=== PATIENT | female | born 1980 | race Two or more races ===

== ENCOUNTER 2021-05-26 17:54 | Emergency (ER) | payer MEDICAID | END 2021-05-26 19:12 | disposition left against medical advice (07) | LOC: ER 17:54 | DX: R10.9 Unspecified abdominal pain (principal); Z53.21 Procedure and treatment not carried out due to patient leaving prior to being seen by health care provider ==

== ENCOUNTER 2021-12-30 16:29 | Emergency (ER) | payer OTHER ==
[~2021-12-30] VITALS: Ht 172.7 cm; Wt 101.5 kg
[2021-12-30 16:43] VITALS: BP 147/88
[2021-12-30] MEDS ORDERED: FLUORESCEIN OPHTH TEST STRIP. OS ONE (17:30)
[2021-12-30] MEDS ORDERED: PROPARACAINE 0.5% OPHTH SOLUTION 15ML BOTTLE. OS ONE (17:30)
--- NOTE | 2021-12-30 18:32 | PHYS DOC ---
Past Medical History Additional Past Medical Histor: ptsd Past Surgical History: Appendectomy, Cholecystectomy General Adult EDM: Chief Complaint: FOREIGN BODY/EYES HPI: HPI: Patient is a 41 year old female who presents with left eye pain and irritation as well as a bump on the palmar aspect of her left hand. Patient states that she recently broke her cell phone screen. She often lays in bed with the phone over her face, and she believes a piece of glass may have scratched her eye. Additionally, she has a tender, red, hard "bump" on the palm of her left hand. She reports associated "tingling." Patient states that she noticed it this morning. Patient has no other complaints at this time. Review of Systems: Review of Systems: ROS negative or noncontributory except as mentioned in HPI. Heart Score: C/O Chest Pain: No Current Medications: Current Medications Medications (Trade) Dose Ordered Sig/Tammi Start Time Stop Time Status Last Admin Dose Admin Fluorescein Sodium (Ful-Kayla) 1 strip 1X ONCE 12/30/21 17:30 12/30/21 17:31 DC 12/30/21 17:43 1 STRIP Proparacaine HCl (Alcaine) 1 drop 1X ONCE 12/30/21 17:30 12/30/21 17:31 DC 12/30/21 17:43 1 DROP Allergies: Allergies: Allergies Coded Allergies Type Severity Reaction Last Updated Verified Penicillins Allergy Unknown 12/30/21 Yes Physical Exam: PE: Constitutional: Well developed, well nourished, no acute distress, non-toxic appearance. HENT: Normocephalic, atraumatic, bilateral external ears normal, nose normal. Eyes: PERRL, EOMI, left medial conjunctival injection without subconjunctival hemorrhage or hyphema, watery discharge on the left side. Fluorescein stain Grande lamp exam reveals scleral abrasion just medial to the edge of the cornea, no foreign bodies removed or visible. Neck: Normal range of motion, no stridor. Skin: Warm, dry, no erythema, no rash. Extremities: 2-3 mm firm and exquisitely tender mass to the palmar aspect of the left hand at the superior border of the thenar eminence without obvious foreign body or entry wound. Extremities otherwise no tenderness, no cyanosis, no clubbing, ROM intact, no edema. Neurologic: Alert and oriented x4, no focal deficits noted. Current Patient Data: Vital Signs: Vital Signs Date Time Temp Pulse Resp B/P (MAP) Pulse Ox O2 Delivery O2 Flow Rate FiO2 12/30/21 16:43 98.1 84 18 147/88 (107) 96 Room Air 98.1 Radiology/Procedures: Radiology/Procedures: PROCEDURE: HAND LEFT 3V XR HAND_LEFT 3 VIEWS History: Reason: palmar painful bump, r/o radiopaque fb / Spl. Instructions: / History: Technique: 3 views left hand Comparison: None. Findings: No dislocation. No acute fracture. No radiopaque foreign body. Impression: 1. No acute osseous abnormality. Electronically signed by: Navin Grant DO (12/30/2021 7:59 PM) [facility] Course & Med Decision Making: Course & Med Decision Making Pertinent Labs and Imaging studies reviewed. (See chart for details) Patient is a 41-year-old female who presents with left eye pain and a small mass on the palm of her left hand. Patient believes that a shard of glass from her correct cell phone screen may have fallen into her eye. Grande lamp exam reveals scleral abrasion without evidence of globe rupture. Patient will be treated with antibiotic eyedrops as well as diclofenac eyedrops. Patient advised to follow with ophthalmology in the next 48 hours. Imaging studies performed on the hand are unremarkable. Patient was advised to use warm compress and follow-up with Ortho. All of the patient's questions were answered. She understands and is agreeable to discharge plan. Case was discussed with Dr. Blackman, attending in the emergency department, prior to patient discharge. Lisa Disclaimer: Lisa Disclaimer: This electronic medical record was generated, in whole or in part, using a voice recognition dictation system. Departure Departure Impression: Primary Impression: Abrasion of sclera of left eye Qualified Codes: S05.8X2A - Other injuries of left eye and orbit, initial encounter Additional Impression: Subcutaneous mass of left hand Disposition: HOME / SELF CARE / HOMELESS Condition: IMPROVED Referrals: UNKNOWN PCP NAME (PCP) LIZBET LYLES MD, EVERETT J Jr. DO Patient Instructions: Eye - Corneal Abrasion, [id number] Additional Instructions: EMERGENCY DEPARTMENT GENERAL DISCHARGE INSTRUCTIONS Thank you for coming to [facility] Emergency Department (ED) today and trusting us with you care. We trust that you had a positive e xperience in our Emergency Department. If you wish to speak to the department management, you may call the director at . YOUR FOLLOW UP INSTRUCTIONS ARE FOLLOWS: 1. Follow up with your primary care doctor. If you do not have a primary d octor, please ask for a resource list of physicians or clinics that may be able to assist you with follow up care. 2. The emergency provider has interpreted your imaging studies, if any were ordered. The radiology legal document specialist also reviewed them. If there is a change in the findings, you will be notified in 48 hours when at all possible. 3. If a lab test or culture has been done, your results will be reviewed and you will be notified if you need a change in treatment. 4. Follow instructions verbalized to you and refer to the printouts if needed. ADDITIONAL INSTRUCTIONS AND INFORMATION: 1. Your care today has been supervised by a physician who is specially trained in emergency care. Many problems require more than one evaluation for a complete diagnosis and treatment. We recommend that you schedule your follow up appointment as recommended to ensure complete treatment of you illness or injury. If you are unable to obtain follow up care and continue to have a problem, or if your condition worsens, we recommend that you return to the ED. 2. We are not able to safely determine your condition over the phone nor are we able to give sound medical advice over the phone. For these safety reasons, if you call for medical advice we will ask you to come to the ED for further evaluation. 3. If you have any questions regarding these discharge instructions please call the ED at . SAFETY INFORMATION: In the interest of safety, wellness, and injury prevention; we encourage you to wear your seat belt, if you smoke; quite smoking, and we encourage family to use a protective helmet for bicycling and other sporting events that present an increased risk for head injury. IF YOUR SYMPTOMS WORSEN OR NEW SYMPTOMS DEVELOP, OR YOU HAVE CONCERNS ABOUT YOUR CONDITION; OR IF YOUR CONDITION WORSENS WHILE YOU ARE WAITING FOR YOUR FOLLOW UP APPOINTMENT; EITHER CONTACT YOUR PRIMARY CARE DOCTOR, THE PHYSICIAN WHOSE NAME AND NUMBER YOU WERE GIVEN, OR RETURN TO THE ED IMMEDIATELY. GINGER SALDIVAR Dec 30, 2021 18:32
[2021-12-30] MEDS ORDERED: CIPROFLOXACIN 0.3% OPHTH SOLUTION 5ML BOTTLE. OS ONE (19:00)
[2021-12-30] MEDS ORDERED: DICLOFENAC SODIUM 0.1% OPHTH SOLUTION 2.5ML BOTTLE. OS ONE (19:00)
--- NOTE | 2021-12-30 20:01 | RAD ---
XR HAND_LEFT 3 VIEWS History: Reason: palmar painful bump, r/o radiopaque fb / Spl. Instructions: / History: Technique: 3 views left hand Comparison: None. Findings: No dislocation. No acute fracture. No radiopaque foreign body. Impression: 1. No acute osseous abnormality. Electronically signed by: Navin Grant DO (12/30/2021 7:59 PM) [facility]
== END 2021-12-30 20:07 | disposition home or self-care (01) ==
LOC: ER 16:29
DX: S05.8X2A Other injuries of left eye and orbit, initial encounter (principal); R22.32 Localized swelling, mass and lump, left upper limb; F43.10 Post-traumatic stress disorder, unspecified; Z88.0 Allergy status to penicillin; Y28.0XXA Contact with sharp glass, undetermined intent, initial encounter; Y93.89 Activity, other specified; Y92.89 Other specified places as the place of occurrence of the external cause; Y99.8 Other external cause status
CPT/HCPCS: 73130; 99283; 99284